=== PATIENT | female | born 2000 | race Caucasian/White ===

== ENCOUNTER 2022-05-30 23:38 | Emergency (ER) | payer OTHER ==
[2022-05-31 00:51] LABS: BASOPHIL 0.3 % (0-2); EOSINOPHIL 0 % (0-5); HCT 38.6 % (37.0-47.0); HGB 13.3 g/dl (12.5-16.0); LYMPHOCYTE 9.8 % (15-48); MCH 31.5 pg (25.0-31.0); MCHC 34.5 g/dL (32.0-36.0); MCV 91.5 fL (78.0-100.0); MONOCYTE 8.8 % (0-12); MPV 9.9 fL (6.0-9.5); NEUTROPHIL 80.8 % (41-80); NRBC 0; PLT 239 K/uL (150-400); RBC 4.22 M/uL (4.20-5.40); RDW 11.8 % (11.5-14.0); WBC 7.8 K/uL (4.0-10.5)
[2022-05-31 01:21] LABS: ALBUMIN 3.8 g/dL (3.4-5.0); BILIRUBIN - TOTAL 0.6 mg/dL (0.2-1.0); BUN/CREAT RATIO (CALC) 10.9 RATIO; CREATININE 0.64 mg/dL (0.51-0.95); POTASSIUM 3.8 mmol/L (3.5-5.1); TOTAL PROTEIN 6.8 g/dL (6.4-8.2)
[2022-05-31 01:33] LABS: INFLUENZA A NAA NEGATIVE (NEGATIVE)
[2022-05-31 01:37] LABS: CORONAVIRUS 2019 SARS-COV-2 POSITIVE (NEGATIVE)
[2022-05-31] MEDS ORDERED: MUCINEX D ER 61 EACH PO (02:16)
[2022-05-31] MEDS ORDERED: PREDNISONE 20MG20 MG PO (02:16)
[2022-05-31] MEDS ORDERED: ONDANSETRON ODT4 MG PO (02:16)
[2022-05-31] MEDS ORDERED: VENTOLIN HFA IN18 GM INH (02:16)
[2022-05-31] MEDS ORDERED: AZITHROMYCIN250 MG PO (02:16)
== END 2022-05-31 02:43 | disposition home or self-care (01) ==
LOC: FER 23:38
PROVIDERS: Internal Medicine
DX: U07.1 COVID-19 (principal); J32.9 Chronic sinusitis, unspecified; Z28.310 Unvaccinated for COVID-19
CPT/HCPCS: 36415; 71045; 80053; 83605; 85025; 85379; 94640; 94664; J1100; U0002